=== PATIENT | male | born 1935 | race Caucasian/White ===

== ENCOUNTER 2020-10-19 20:39 | Emergency (ER) | payer MEDICARE ==
[~2020-10-19] VITALS: Ht 185.4 cm; Wt 84.4 kg
[~2020-10-19 20:39] MED LIST: ALTACE10 MG; BP MEDS; METHOTREXATE 22.5 MG; NAPROXEN 500MG500 MG PO
[2020-10-19] MEDS ORDERED: AMANTADINE 100100 MG PO (21:04)
[2020-10-19] MEDS ORDERED: NORVASC5 MG PO (21:05)
[2020-10-19] MEDS ORDERED: CARVEDILOL12.5 MG PO (21:06)
[2020-10-19] MEDS ORDERED: DRIZALMA SPRINK30 MG PO (21:06)
[2020-10-19] MEDS ORDERED: ESCITALOPRA5 MG/5 ML PO (21:07)
[2020-10-19] MEDS ORDERED: LINZESS145 MCG PO (21:07)
[2020-10-19] MEDS ORDERED: FLOMAX0.4 MG PO (21:08)
[2020-10-19] MEDS ORDERED: OMEPRAZOLE 20 M20 M1 PO (21:08)
[2020-10-19 23:45] VITALS: BP 150/76
== END 2020-10-19 23:45 | disposition home or self-care (01) ==
LOC: M.ERS 20:39
DX: S01.111A Laceration without foreign body of right eyelid and periocular area, initial encounter (principal); R51.9 Headache, unspecified; I10 Essential (primary) hypertension; M19.90 Unspecified osteoarthritis, unspecified site; G20 Parkinson's disease; K21.9 Gastro-esophageal reflux disease without esophagitis; I25.2 Old myocardial infarction; F03.90 Unspecified dementia, unspecified severity, without behavioral disturbance, psychotic disturbance, mood disturbance, and anxiety; Z90.5 Acquired absence of kidney; Z79.899 Other long term (current) drug therapy; W01.198A Fall on same level from slipping, tripping and stumbling with subsequent striking against other object, initial encounter; Y93.89 Activity, other specified; Y92.89 Other specified places as the place of occurrence of the external cause; Y99.8 Other external cause status

== ENCOUNTER 2020-10-27 07:19 | Emergency (ER) | payer MEDICARE, MEDICAID ==
[~2020-10-27] VITALS: Ht 182.9 cm; Wt 81.7 kg
[~2020-10-27 07:19] MED LIST changes: +AMANTADINE 100100 MG PO; +CARVEDILOL12.5 MG PO; +DRIZALMA SPRINK30 MG PO; +ESCITALOPRA5 MG/5 ML PO; +FLOMAX0.4 MG PO; +LINZESS145 MCG PO; +NORVASC5 MG PO; +OMEPRAZOLE 20 M20 M1 PO
[2020-10-27 07:58] LABS: ABSOLUTE EOSINOPHILS 0.2 thou/uL (0.0-0.7); ABSOLUTE LYMPHOCYTES 1.5 thou/uL (0.8-5.3); ABSOLUTE MONOCYTES 0.6 thou/uL (0.0-1.2); ABSOLUTE NEUTROPHILS 6.4 thou/uL (1.6-8.1); BASOPHILS 0.5 %; EOSINOPHILS 2.4 %; HEMATOCRIT 40.3 % (42.0-52.0); HEMOGLOBIN 13.7 gm/dL (14.0-18.0); LYMPHOCYTES 16.9 %; MCHC 34.1 g/dL (28.0-37.0); MPV 7.6 fl. (7.2-11.1); NUCLEATED RBCS 0 /100WBC; PLATELET COUNT* 233 thou/uL (150-400); POLYS 73.2 %; RBC 4.29 mil/uL (4.50-6.00); RDW-CV 14.1 % (10.5-14.5); WBC 8.8 thou/uL (4.0-11.0)
[2020-10-27 08:33] LABS: ALBUMIN 3.7 g/dL (3.4-5.0); CALCIUM 8.7 mg/dL (8.5-10.1); CREATININE 1.3 mg/dL (0.6-1.3); POTASSIUM 3.7 mmol/L (3.5-5.1); TOTAL BILIRUBIN 0.4 mg/dL (<0.1-1.0); TOTAL PROTEIN 6.9 g/dL (6.4-8.2)
--- NOTE | 2020-10-27 09:53 | EKG ---
[place] [address] ELECTROCARDIOGRAM REPORT Name: NICOLE MELISSA Room: [facility].#: [id number] Admission: 10/27/20 Attend Phys: Discharge: Date of : 39 Date of Service: 10/27/20739 Report #: [id number] THIS REPORT FOR: //name// [facility] ED Test Date: 2020-10-27 Test Time: 07:40:19 Pat Name: NICOLE MELISSA Department: Room: Gender: Field Observer: [facility] : 1935 Requested By: Loc Jones Order Number: [id number] MD: Jared Naidu Measurements Intervals [place] Rate: 73 P: 75 MO: 244 QRS: 24 QRSD: 93 T: 67 QT: 385 QTc: 425 Interpretive Statements Sinus rhythm Prolonged [place] interval Borderline low voltage, extremity leads No previous ECG available for comparison Electronically Signed On 10-27-2020 9:52:50 CDT by Jared Naidu [email or web address] <ELECTRONICALLY SIGNED> By: Jared Naidu MD, [facility] 10/27/20951 9 9 Jared Naidu MD, FACC /EPI
[2020-10-27 11:27] VITALS: BP 178/85
== END 2020-10-27 11:30 | disposition home or self-care (01) ==
LOC: M.ERS 07:19
PROVIDERS: Family Medicine
DX: R06.00 Dyspnea, unspecified (principal); Z20.822 Contact with and (suspected) exposure to COVID-19; J98.59 Other diseases of mediastinum, not elsewhere classified

== ENCOUNTER 2021-03-15 16:05 | Inpatient (IN) | payer MEDICARE, MEDICAID ==
[~2021-03-15] VITALS: Ht 180.3 cm; Wt 79.8 kg
[2021-03-15 16:12] VITALS: BP 175/72
[2021-03-15 16:28] LABS: ABSOLUTE MONOCYTES 0.5 thou/uL (0.0-1.2); ABSOLUTE NEUTROPHILS 3.5 thou/uL (1.6-8.1); BASOPHILS 0.5 %; EOSINOPHILS 0.1 %; HEMOGLOBIN 13.6 gm/dL (14.0-18.0); LYMPHOCYTES 19.8 %; MCH 31.2 pg (26.0-34.0); MCV 91.7 fL (80.0-100.0); MONOCYTES 10.4 %; MPV 7.8 fl. (7.2-11.1); NUCLEATED RBCS 0 /100WBC; PLATELET COUNT* 132 thou/uL (150-400); POLYS 69.2 %; RBC 4.36 mil/uL (4.50-6.00); RDW-CV 13.8 % (10.5-14.5); WBC 5.1 thou/uL (4.0-11.0)
[2021-03-15 16:40] LABS: CALCIUM 8.1 mg/dL (8.5-10.1); CREATININE 1.6 mg/dL (0.6-1.3)
[2021-03-15 16:41] LABS: POTASSIUM 4.2 mmol/L (3.5-5.1)
[2021-03-15 16:42] LABS: APTT 29.3 Seconds (25.0-31.3); PROTIME 10.5 Seconds (9.20-11.50)
[2021-03-15 16:51] LABS: ALBUMIN 3.1 g/dL (3.4-5.0); TOTAL BILIRUBIN 0.5 mg/dL (<0.1-1.0); TOTAL PROTEIN 6.7 g/dL (6.4-8.2)
[2021-03-15 19:01] VITALS: BP 160/105
--- NOTE | 2021-03-15 21:39 | NUR ---
VERONICA (BROTHER) CALLED RE: PT STATUS [phone]
[2021-03-15 23:02] VITALS: BP 169/70
[2021-03-16 02:30] VITALS: BP 197/93
[2021-03-16 03:05] VITALS: BP 183/93
[2021-03-16 04:16] LABS: HEMATOCRIT 44.7 % (42.0-52.0); HEMOGLOBIN 14.9 gm/dL (14.0-18.0); MCH 30.9 pg (26.0-34.0); MCHC 33.3 g/dL (28.0-37.0); MCV 92.7 fL (80.0-100.0); MPV 7.8 fl. (7.2-11.1); RBC 4.82 mil/uL (4.50-6.00); WBC 4.1 thou/uL (4.0-11.0)
[2021-03-16 04:57] LABS: ALBUMIN 2.9 g/dL (3.4-5.0); CALCIUM 8.1 mg/dL (8.5-10.1); CREATININE 1.3 mg/dL (0.6-1.3); POTASSIUM 3.7 mmol/L (3.5-5.1); TOTAL BILIRUBIN 0.3 mg/dL (<0.1-1.0); TOTAL PROTEIN 6.7 g/dL (6.4-8.2)
--- NOTE | 2021-03-16 08:15 | NUR ---
PT ADMITTED TO ROOM 117 DURING AUTO LOCATOR; VSS, BP ELEVATED, ROOM AIR, SINUS ANGEL ON TELEMETRY, HENSON IN PLACE FROM HOME. HE IS ABLE TO COMMUNICATE HIS NEEDS TO STAFF WITH SOME DIFFICULTY; HE IS WMOP-TS-FARMFPD AND VERY FORGETFUL. HE HAS DENIED THE NEED FOR PAIN MEDICATION UP TO 0700 THIS MORNING. HENSON HAS BEEN PATENT UP TO 0700 TODAY.
--- NOTE | 2021-03-16 08:34 | EKG ---
[place] [address] ELECTROCARDIOGRAM REPORT Name: MELISSANICOLE L Room: [address] ADM IN .R.#: [id number] Admission: 03/15/21 Attend Phys: Kristine Crockett, Discharge: Date of : 39 Date of Service: 03/15/21 1628 Report #: [id number] THIS REPORT FOR: //name// [facility] ED Test Date: 2021-03-15 Test Time: 16:28:03 Pat Name: NICOLE MELISSA Department: Room: [facility] Gender: M Cushion Builder: : 1935 Requested By: Loc Jones Order Number: [id number] MD: Luciano Monteiro Measurements Intervals [place] Rate: 55 P: 68 [place]: 232 QRS: 52 QRSD: 102 T: 81 QT: 499 QTc: 478 Interpretive Statements Sinus rhythm Prolonged [place] interval Borderline prolonged QT interval Compared to ECG 10/27/2020 07:40:19 No significant changes noted Electronically Signed On 03-16-2021 8:34:29 ECOMMERCE ANALYST by Luciano Monteiro [email or web address] <ELECTRONICALLY SIGNED> By: Luciano Monteiro MD, FACC 03/16/21 0834 1628 1628 Luciano Monteiro MD, [facility] /EPI
[2021-03-16 09:38] VITALS: BP 164/82
--- NOTE | 2021-03-16 09:43 | NUR ---
Infection Control: Per [facility] Dept. patient had a positive Covid PCR test on 03/09/21 at [facility].
[2021-03-16 11:36] VITALS: BP 181/84
[2021-03-16 15:43] VITALS: BP 173/71
--- NOTE | 2021-03-16 16:49 | NUR ---
CM ATTEMPTED TO COMPLETE ASSESSMENT BY CALLING PT ROOM 3X, BUT THERE WAS NO ANSWER. CM TO ATTEMPT TO CONDUCT ASSESSMENT AT LATER DATE.
--- NOTE | 2021-03-16 18:27 | NUR ---
PT UP TO CHAIR TODAY AND TAKING IN GOOD PO. OBTAIN ORDER FOR PRN HYDRALAZINE IV. WILL CONTINUE TO ASSESS.
[2021-03-16 20:00] VITALS: BP 147/77
[2021-03-17] VITALS: BP 160/76
[2021-03-17 04:00] VITALS: BP 179/110
[2021-03-17 08:44] VITALS: BP 170/82
[2021-03-17 12:00] VITALS: BP 168/81
[2021-03-17 16:00] VITALS: BP 155/65
--- NOTE | 2021-03-17 16:49 | NUR ---
CM ATTEMPTED TO MAKE CONTACT WITH [facility] RENETTA MORIN [phone] BUT WAS UNABLE TO MAKE CONTACT. CM TO FOLLOWUP TO COMPLETE ASSESSMENT.
--- NOTE | 2021-03-17 18:21 | NUR ---
NOTED 50MLS OUTPUT IN HENSON, BLADDER SCAN IS ZERO. ECOURAGE PO FLUIDS AND SEND MESSAGE TO DR. JOSEPH. WILL CONTINUE TO ASSESS.
[2021-03-17 19:45] VITALS: BP 167/67
[2021-03-18] VITALS: BP 142/54
--- NOTE | 2021-03-18 02:54 | NUR ---
ASSUMED CARE OF PT AT 1900. PT IS CONFUSED BUT PLEASANT. VSS. PERRLA. NO COMPLAINTS OF BED. PT IS ON ROOM AIR. PT HAS A HENSON IN PLACE. PT IS IN SINUS RYTHM ON THE TELEMETRY. PT IS RESTING COMFORTABLY IN BED. RESPIRATIONS ARE EVEN AND NONLABORED. WILL CONTINUE TO MONITOR PT.
[2021-03-18 04:00] VITALS: BP 129/71
[2021-03-18 08:00] VITALS: BP 187/79
[2021-03-18 12:18] VITALS: BP 150/65
[2021-03-18 14:13] LABS: URINE BILIRUBIN NEGATIVE (Negative); URINE BLOOD 1+ (Negative); URINE CLARITY CLEAR; URINE COLOR YELLOW; URINE GLUCOSE-RANDOM NEGATIVE (Negative); URINE KETONES NEGATIVE (Negative); URINE LEUKOCYTES-REFLEX TRACE (Negative); URINE NITRITE-REFLEX POSITIVE (Negative); URINE PROTEIN 2+ (Negative); URINE SPECIFIC GRAVITY 1.015 (1.005-1.030); URINE UROBILINOGEN 0.2 E.U./dl (0.2-1.0)
[2021-03-18 14:21] LABS: BACTERIA-REFLEX 1-9 Few /HPF (None Seen); HYALINE CASTS 4-10 Moderate /LPF (None Seen); SQUAMOUS NONE SEEN /LPF (0-3); URINE WBC-REFLEX 0-5 Rare /HPF (0-5)
[2021-03-18 14:22] LABS: AMORPHOUS URATES Moderate /LPF (None Seen); URINE RBC 3-10 Few /HPF (0-2)
[2021-03-18 16:23] VITALS: BP 165/77
--- NOTE | 2021-03-18 16:58 | NUR ---
CM NOT ABLE TO MAKE CONTACT WITH PT BROTHER/DPOA (RENETTA [phone]) TO COMPLETE ASSESSMENT. CM TO FOLLOWUP. CM SPOKE WITH SENIOR PSYCHIATRIC SECRETARY (MIKEY [phone]) WHO STATED SHE WOULD EMAIL A LIST OF FACILITIES FOR CHALLENGING PLACEMENTS. CM TO FOLLOW. PT PENDING ACCEPTANCE WITH [facility], AND [facility].
[2021-03-18 19:45] VITALS: BP 158/70
[2021-03-19 00:27] VITALS: BP 180/80
[2021-03-19 04:15] VITALS: BP 171/76
--- NOTE | 2021-03-19 04:20 | NUR ---
ASSUMED CARE OF PT AT 1900. PT IS CONFUSED. VSS. PERJIM. NO COMPLAINTS OF PAIN. PT IS ON ROOM AIR. PT HAS A HENSON IN PLACE. PT IS IN SINUS RYTHM ON THE TELEMETRY. PT IS RESTING COMFORTABLY IN BED. RESPIRATIONS ARE EVEN AND NONLABORED. WILL CONTINUE TO MONITOR PT.
[2021-03-19 08:12] VITALS: BP 146/73
--- NOTE | 2021-03-19 11:55 | NUR ---
UPDATED PTS SIGNIFICANT OTHER VIA PHONE, ALL QUESTIONS ANSWERED. UPDATED WAITING ON PLACEMENT AT THIS TIME
[2021-03-19 12:00] VITALS: BP 129/64
[2021-03-19 16:00] VITALS: BP 148/71
--- NOTE | 2021-03-19 19:01 | NUR ---
CM ASSESSMENT ASSESSMENT COMPLETED WITH PT EXWIFE/CAREGIVER NARESH SUGGS ([phone]). PT LIVED IN OWN HOME WITH NARESH. NARESH COMPLETED ALL ADLS. PT USES A WALKER, SHOWER CHAIR. PT HAS NO HX OF ARU, BUT HAD SNF AT [facility] AND HAS CURRENT HH WITH [facility]. NARESH PREVIOUSLY WORKING WITH [facility] IN [facility] ([phone]) FOR PLACEMENT FOR PT. CM CALLED [facility] AND INFORMED THERE ARE NO OPEN BEDS, BUT PT NEXT ON LIST. PT REFERED TO LOCAL SNFS AND CM WAS ADVISED TO CONTACT THE FOLLOWING SNFS ON 03/22/21 TO DETERMINE IF THEY CAN ACCEPT/HAVE BED AVAILABILITY: [facility], [facility], [facility]. CM TO FOLLOW.
[2021-03-19 20:00] VITALS: BP 147/57
[2021-03-20 01:43] VITALS: BP 147/55
--- NOTE | 2021-03-20 05:33 | NUR ---
ASSUMED PT CARE AT APPROX 1930. PT IS AWAEKE AND ORIENTED X4. PT IS TRACING SR ON THE GRINDER AND PLATER. PT IS NOT IN DISTRESS, NO DESATURATIONS NOTED ON ROOM AIR. PT DENIES PAIN/DISCOMFORT. NO ACUTE CAHNGES THIS SHIFT. CALL LIGHT WITHIN REACH. HOURLY ROUNDING DONE FOR PT SAFETY. HIGH FALL PRECAUTIONS IN PLACE.
[2021-03-20 05:50] VITALS: BP 182/87
[2021-03-20 06:18] LABS: URINE BILIRUBIN NEGATIVE (Negative); URINE BLOOD TRACE (Negative); URINE CLARITY CLEAR; URINE COLOR YELLOW; URINE GLUCOSE-RANDOM NEGATIVE (Negative); URINE KETONES NEGATIVE (Negative); URINE LEUKOCYTES NEGATIVE (Negative); URINE NITRITE POSITIVE (Negative); URINE PROTEIN 2+ (Negative); URINE UROBILINOGEN 0.2 E.U./dl (0.2-1.0)
[2021-03-20 06:42] LABS: CASTS None Seen /LPF (None Seen); SQUAMOUS NONE SEEN /LPF (0-3)
[2021-03-20 06:43] LABS: AMORPHOUS URATES Few /LPF (None Seen); BACTERIA 1-9 Few /HPF (None Seen); MUCUS 0-3 Light strn/LPF (None Seen); URINE RBC 0-2 Rare /HPF (0-2); URINE WBC None Seen /HPF (0-5)
[2021-03-20 08:01] VITALS: BP 152/72
[2021-03-20 12:00] VITALS: BP 147/70
[2021-03-20 16:00] VITALS: BP 138/62
--- NOTE | 2021-03-20 18:50 | NUR ---
PT GOT UP TO CHAIR THIS SHIFT, RESTING COMFORTABLY IN RECLINER. PT MORE CONFUSED TODAY THAN YESTERDAY SHIFT, TRIES TO GET OOB ON HIS OWN. BED AND CHAIR ALARMS ARE ON. PTS NARESH UPDATED TWICE THIS SHIFT.
[2021-03-20 20:00] VITALS: BP 163/72
[2021-03-21 00:01] VITALS: BP 177/66
[2021-03-21 04:52] VITALS: BP 157/79
--- NOTE | 2021-03-21 06:00 | NUR ---
No acute changes this shift. Pt remained on room air, no desaturations noted. Pt is tracing SR on the telemetry monitor. High fall precautions in place.
[2021-03-21 08:00] VITALS: BP 158/80
[2021-03-21 12:00] VITALS: BP 134/68
[2021-03-21 16:30] VITALS: BP 148/72
[2021-03-21 18:46] LABS: URINE BILIRUBIN NEGATIVE (Negative); URINE BLOOD 2+ (Negative); URINE CLARITY CLEAR; URINE COLOR YELLOW; URINE GLUCOSE-RANDOM NEGATIVE (Negative); URINE KETONES TRACE (Negative); URINE LEUKOCYTES 1+ (Negative); URINE NITRITE POSITIVE (Negative); URINE PROTEIN 3+ (Negative); URINE UROBILINOGEN 0.2 E.U./dl (0.2-1.0)
[2021-03-21 18:54] LABS: BACTERIA 1-9 Few /HPF (None Seen); CASTS None Seen /LPF (None Seen); CRYSTALS None Seen /LPF (None Seen); MUCUS 0-3 Light strn/LPF (None Seen); SQUAMOUS 4-10 Moderate /LPF (0-3); URINE RBC 3-10 Few /HPF (0-2); URINE WBC 6-15 Few /HPF (0-5)
[2021-03-21 20:00] VITALS: BP 154/62
[2021-03-22] VITALS: BP 156/57
[2021-03-22 04:00] VITALS: BP 165/80
--- NOTE | 2021-03-22 06:47 | NUR ---
No acute changes this shift. Pt remained on room air, no desaturations noted. Pt is tracing Sr on the lunchroom monitor. High fall precautions in place.
[2021-03-22 08:00] VITALS: BP 150/64
[2021-03-22 11:52] VITALS: BP 174/69
--- NOTE | 2021-03-22 13:14 | NUR ---
Nutrition: Pt admitted to COVID unit, COVID positive. Regular diet ordered. Assessed for LOS. Wt: 175#. Albumin 2.9. No meal intake records. Per chart review, awaiting discharge to facility. H/o HTN, advanced dementia. Encourage good po intake. No other nutrition interventions at this time. Consider mild to low risk.
[2021-03-22 15:41] VITALS: BP 126/50
--- NOTE | 2021-03-22 16:56 | NUR ---
CM FOLLOWUP PT PENDING ACCEPTANCE DETERMINATION FROM [facility], [facility], AND [facility] MAY HAVE BED AVAILABLE THIS WEEK IN [facility] UNIT AND WILL ADVISE CM ON 03/23/21. CM TO FOLLOW.
--- NOTE | 2021-03-22 18:58 | NUR ---
PATIENT HAD A QUIET DAY. REMAINS CONFUSED, BUT PLEASANT. SR ON PLUG OVERWRAP MACHINE TENDER. IV SITE PATIENT. PATIENT IS ON ROOM AIR. PATIENT WILL PROBABLY GO TO FACILITY TOMORROW. STABLE.
[2021-03-22 21:00] VITALS: BP 158/74
[2021-03-23 00:30] VITALS: BP 152/94
[2021-03-23 04:00] VITALS: BP 155/74
[2021-03-23 08:00] VITALS: BP 120/66
[2021-03-23 11:55] VITALS: BP 110/60
[2021-03-23] MEDS ORDERED: MIRTAZAPINE15 M2 PO (16:01)
[2021-03-23] MEDS ORDERED: CEFDINIR300 MG PO (16:01)
[2021-03-23 16:03] VITALS: BP 130/66
--- NOTE | 2021-03-23 18:40 | NUR ---
CM FOLLOWUP PT MED CLEAR FOR DC TO SNF AT [facility] [phone]. PT TO BE TRANSPORTED BY [facility] AT 630PM.
--- NOTE | 2021-03-23 20:03 | NUR ---
VERA MANZO GAVE REPORT TO TATUM MANZO. PT DISCHARGED AT [id number] BY [facility].
== END 2021-03-23 20:00 | DRG 177 ==
LOC: M.ERS 16:05 → M.ORTHSURG 16:55 → M.TBA-ER 16:55 → M.ORTHSURG 03-16 02:50
PROVIDERS: Family Medicine; Internal Medicine; ADMIT Internal Medicine; ATTEND Internal Medicine
DX: U07.1 COVID-19 (principal); N17.0 Acute kidney failure with tubular necrosis; E44.0 Moderate protein-calorie malnutrition; M19.90 Unspecified osteoarthritis, unspecified site; K21.9 Gastro-esophageal reflux disease without esophagitis; N40.0 Benign prostatic hyperplasia without lower urinary tract symptoms; F03.90 Unspecified dementia, unspecified severity, without behavioral disturbance, psychotic disturbance, mood disturbance, and anxiety; I12.9 Hypertensive chronic kidney disease with stage 1 through stage 4 chronic kidney disease, or unspecified chronic kidney disease; N40.1 Benign prostatic hyperplasia with lower urinary tract symptoms; R33.8 Other retention of urine; N18.2 Chronic kidney disease, stage 2 (mild); I25.2 Old myocardial infarction; Z82.49 Family history of ischemic heart disease and other diseases of the circulatory system; Z87.891 Personal history of nicotine dependence; Z68.24 Body mass index [BMI] 24.0-24.9, adult

== ENCOUNTER 2021-04-01 08:14 | Inpatient (IN) | payer MEDICARE, MEDICAID ==
[~2021-04-01] VITALS: Ht 177.8 cm; Wt 78.6 kg
--- NOTE | ~2021-04-01 | CON ---
[facility] [address] [place] [address] CONSULTATION Name: NICOLE MELISSA Room: [address] IN [place].#: [id number] Admission: 04/01/21 Attend Phys: Yariel Valenzuela Discharge: Date of : 39 Report #: [id number] THIS REPORT FOR: cc: Conrado Ferrara MD, Dennis R MD Khosla, Parveen K. MD ~ DATE OF CONSULTATION: 04/02/2021 HISTORY OF PRESENT ILLNESS: This is an 85-year-old male patient who is unable to provide any reliable history. It looks to me the patient is pretty significantly demented. The records indicate the same thing. He apparently fell. He does not know why he fell. He had some slurred speech as per records. He does not remember any of those. He was admitted and he says he feels back to his baseline. He is not complaining of any headache now. When I asked him if he hit his head, he says he does not remember. In fact, he does not remember even fall. REVIEW OF SYSTEMS: A 14-point review of system was carried out. It was very difficult. This is because of his memory disturbances. Part of it is from the record. It looks like he has a history of dementia. I asked him if he has any Parkinson's disease, he said no. He has a kidney removed. He has a history of hypertension, arthritis, weakness, history of fall, GERD, BPH, myocardial infarction and apparently has a history of murmur. That is all with the 14-point review of system I can get and I tried. He also had kidney disease and GFR is still low. PAST MEDICAL HISTORY: He says he does not have any prior history of stroke. FAMILY HISTORY: Unavailable. SOCIAL HISTORY: He apparently lives in a usp. We will try to reach some family to get some more history. PHYSICAL EXAMINATION: NEUROLOGIC: His higher functions indicate that he thinks it is February. He thinks Manasa is the president, but he knew what hospital he was in. Cranial nerve examination, I am not sure he can see properly. He sometime counted the fingers, sometime just got it totally wrong. He moved all 4 extremities. I tried to do the positions, he does not understand the instructions. His both plantars are withdrawal. His reflexes are somewhat diminished, looks like he can feel pain. His tone is symmetrical. The rest of the cranial nerve examination is unremarkable. I do not think he has any cerebellar sign, but it is difficult to tell. There is no meningeal sign. There is no carotid bruit. GENERAL: He is reasonably a well-developed individual. NECK: He has no thyroid mass, [place] [address] CONSULTATION Name: NICOLE MELISSA Room: [address] IN [facility]#: [id number] Admission: 04/01/21 Attend Phys: Yariel Valenzuela Discharge: Date of : 39 Report #: [id number] VITAL SIGNS: Blood pressure is 163/91, respirations 17, pulse is 78, temperature is 98.2. CARDIAC: Does appear to have some murmur. No respiratory difficulty. LABORATORY DATA: White count is 7.1. GFR is only 45. DIAGNOSTIC DATA: Carotid Doppler is unremarkable. CT scan of the head and C-spine was done, it does not show any acute changes. There is a question of stroke. He does have periventricular disease. IMPRESSION: 1. Dementia. 2. Ambulation difficulty. 3. Question of stroke on the CT. RECOMMENDATIONS: 1. If possible, would like to do an MRI in this patient. 2. We will try to reach some family. 3. We will do a TSH, vitamin B12 in this patient. 4. We will await the physical therapy and see how he does with the physical therapy. Thank you very much for this referral. By: 1136 1723Ppepito Navarro MD /giuseppe
[~2021-04-01 08:14] MED LIST changes: +CEFDINIR300 MG PO; +MIRTAZAPINE15 M2 PO
[2021-04-01 08:15] VITALS: BP 123/69
[2021-04-01 09:47] LABS: ABSOLUTE EOSINOPHILS 0.1 thou/uL (0.0-0.7); ABSOLUTE MONOCYTES 0.6 thou/uL (0.0-1.2); ABSOLUTE NEUTROPHILS 5.3 thou/uL (1.6-8.1); BASOPHILS 0.6 %; EOSINOPHILS 1.9 %; HEMOGLOBIN 14.3 gm/dL (14.0-18.0); LYMPHOCYTES 14.7 %; MCH 31.5 pg (26.0-34.0); MCV 92.5 fL (80.0-100.0); MONOCYTES 8.4 %; MPV 6.5 fl. (7.2-11.1); NUCLEATED RBCS 0 /100WBC; PLATELET COUNT* 324 thou/uL (150-400); POLYS 74.4 %; RBC 4.54 mil/uL (4.50-6.00); RDW-CV 13.8 % (10.5-14.5); WBC 7.1 thou/uL (4.0-11.0)
[2021-04-01 09:55] LABS: CALCIUM 9.3 mg/dL (8.5-10.1); CREATININE 1.7 mg/dL (0.6-1.3); POTASSIUM 4.2 mmol/L (3.5-5.1)
[2021-04-01 10:00] LABS: ALBUMIN 3.4 g/dL (3.4-5.0); TOTAL BILIRUBIN 0.7 mg/dL (<0.1-1.0); TOTAL PROTEIN 7.8 g/dL (6.4-8.2)
[2021-04-01 11:13] VITALS: BP 148/81
--- NOTE | 2021-04-01 13:03 | EKG ---
[place] [address] ELECTROCARDIOGRAM REPORT Name: MELISSANICOLE Room: [address] ADM IN ..#: [id number] Admission: 04/01/21 Attend Phys: Asutin Mcmanus Discharge: Date of : 39 Date of Service: 04/01/21 0933 Report #: [id number] THIS REPORT FOR: //name// [facility] ED Test Date: 2021-04-01 Test Time: 09:33:01 Pat Name: NICOLE MELISSA Department: Room: [facility] Gender: M Mirror Framer: : 1935 Requested By: Marino Kramer Order Number: [id number] MD: Jared Naidu Measurements Intervals [place] Rate: 64 P: 27 [place]: 219 QRS: 44 QRSD: 100 T: 79 QT: 438 QTc: 452 Interpretive Statements Sinus rhythm Borderline prolonged [place] interval Probable left atrial enlargement Baseline wander in lead(s) V1,V2 Compared to ECG 03/15/2021 16:28:03 rate has increased Electronically Signed On 04-01-2021 13:02:56 SURETY BOND AGENT by Jared Naidu [email or web address] <ELECTRONICALLY SIGNED> By: Jared Naidu MD, [facility] 04/01/21 1302 0933 0933 Jared Naidu MD, FAC /EPI
[2021-04-01 16:00] VITALS: BP 175/89
[2021-04-01 20:00] VITALS: BP 185/95
[2021-04-01 20:31] LABS: URINE BILIRUBIN NEGATIVE (Negative); URINE BLOOD 1+ (Negative); URINE CLARITY CLEAR; URINE COLOR YELLOW; URINE GLUCOSE-RANDOM NEGATIVE (Negative); URINE KETONES NEGATIVE (Negative); URINE LEUKOCYTES-REFLEX NEGATIVE (Negative); URINE NITRITE-REFLEX NEGATIVE (Negative); URINE PROTEIN 2+ (Negative); URINE UROBILINOGEN 0.2 E.U./dl (0.2-1.0)
[2021-04-01 20:40] LABS: HYALINE CASTS 0-3 Few /LPF (None Seen); MUCUS None Seen strn/LPF (None Seen); SQUAMOUS 0-3 Few /LPF (0-3)
[2021-04-01 20:41] LABS: BACTERIA-REFLEX 1-9 Few /HPF (None Seen); CRYSTALS None Seen /LPF (None Seen); URINE RBC 0-2 Rare /HPF (0-2); URINE WBC-REFLEX 6-15 Few /HPF (0-5)
[2021-04-02] VITALS: BP 156/97
[2021-04-02 04:00] VITALS: BP 174/84
[2021-04-02 05:39] LABS: ANION GAP 8 mmol/L (7-16); CHLORIDE 103 mmol/L (98-107); CHOLESTEROL 180 mg/dL (<200); POTASSIUM 3.8 mmol/L (3.5-5.1); SODIUM 139 mmol/L (136-145); VLDL 21 mg/dL (<40)
[2021-04-02 05:42] LABS: ALKALINE PHOSPHATASE 127 U/L (46-116); BUN 20 mg/dL (7-18); CALCIUM 8.8 mg/dL (8.5-10.1); CO2 28 mmol/L (21-32); CREATININE 1.6 mg/dL (0.6-1.3); GLUCOSE 79 mg/dL (70-99); HDL CHOLESTEROL 44 mg/dL (>40); LDL CHOLESTEROL 115 mg/dL (<100); SGOT 43 U/L (15-37); SGPT 38 U/L (30-65); TC:HDL 4.1 Ratio (Not establshd); TOTAL BILIRUBIN 0.6 mg/dL (<0.1-1.0); TOTAL PROTEIN 6.7 g/dL (6.4-8.2); TRIGLYCERIDE 105 mg/dL (<150)
[2021-04-02 05:47] LABS: SERUM ASSESSMENT CLEAR
[2021-04-02 06:03] LABS: CALCIUM 8.5 mg/dL (8.5-10.1); CREATININE 1.5 mg/dL (0.6-1.3); POTASSIUM 4.2 mmol/L (3.5-5.1)
[2021-04-02 08:00] VITALS: BP 150/67
[2021-04-02 12:00] VITALS: BP 163/91
--- NOTE | 2021-04-02 13:49 | 2DMMODE ---
[place] [address] 2 D/M-MODE ECHOCARDIOGRAM Name: NICOLE MELISSA Room: [address] IN [place]#: [id number] Admission: 04/01/21 Attend Phys: Austin Mcmanus Discharge: Date of : 39 Date of Service: 04/02/21 1349 Report #: [id number] THIS REPORT FOR: cc: Conrado Ferrara MD, Dennis R MD Blick, David R. MD [facility] ~ ADDENDUM APPROVED REPORT Study performed: 04/02/2021 09:56:19 EXAM: Comprehensive 2D, Doppler, and color-flow Echocardiogram Patient Location: In-Patient Room #: Formerly named [facility] Status: routine BSA: 1.96 HR: 62 bpm BP: 174/84 mmHg Rhythm: NSR Other Information Study Quality: Good Indications CVA/TIA Echo Enhancing Agent Indication: Rule out Shunt Agent(s) / Amount(s) Used: Agitated Saline 10 cc 2D Dimensions IVSd: 11.43 (7-11mm) LVOT Diam: 20.18 (18-24mm) LVDd: 42.77 mm PWd: 10.64 (7-11mm) Aortic Root: 36.87 mm Volumes Left Atrial Volume (Systole) LA ESV Index: 21.30 mL/m2 Aortic Valve AoV Peak Martin.: 1.34 m/s AO Peak Gr.: 7.16 mmHg LVOT Max P.12 mmHg AO Mean Gr.: 3.64 mmHg LVOT Mean P.47 mmHg LVOT Max V: 0.88 m/[place] [address] 2 D/M-MODE ECHOCARDIOGRAM Name: NICOLE MELISSA Room: [address]#: [id number] Admission: 04/01/21 Attend Phys: Austin Mcmanus Discharge: Date of : 39 Date of Service: 04/02/21 1349 Report #: [id number] AO V2 VTI: 22.83 cm LVOT Mean V: 0.56 m/s MARY (VTI): 2.60 cm2 LVOT V1 VTI: 18.55 cm Mitral Valve E/A Ratio: 0.51 MV Decel. Time: 479.26 ms MV E Max Martin.: 0.53 m/s MV PHT: 138.98 ms MVA (PHT): 1.58 cm2 TDI E/Lateral E': 6.63 E/Medial E': 7.57 Medial E' Martin.: 0.07 m/s Lateral E' Martin.: 0.08 m/s Left Ventricle The left ventricle is normal size. There is normal LV segmental wall motion. There is normal left ventricular wall thickness. Left ventricular systolic function is normal. The left ventricular ejection fraction is within the normal range. LVEF is 60-65%. Grade I - abnormal relaxation pattern. Right Ventricle The right ventricle is normal size. The right ventricular systolic function is normal. Pacemaker lead is present in the right ventricle. Atria The left atrium size is normal. PFO is noted. The right atrium size is normal. Aortic Valve Mild aortic valve sclerosis. No aortic regurgitation is present. There is no aortic valvular stenosis. Mitral Valve There is mitral annular calcification. The mitral valve is normal in structure. There is trace mitral valve regurgitation noted. No evidence of mitral valve stenosis. Tricuspid Valve The tricuspid valve is normal in structure. Unable to assess PA pressure. Trace tricuspid regurgitation. Pulmonic Valve The pulmonary valve is normal in structure. There is no pulmonic [place] [address] 2 D/M-MODE ECHOCARDIOGRAM Name: MELISSANICOLE King Ariela Room: [address]#: [id number] Admission: 04/01/21 Attend Phys: Austin Mcmanus Discharge: Date of : 39 Date of Service: 04/02/21 1349 Report #: [id number] Great Vessels The aortic root is normal in size. IVC is normal in size and collapses >50% with inspiration. Pericardium There is no pericardial effusion. <Conclusion> LVEF is 60-65%. Mild aortic valve sclerosis. PFO is noted. <ELECTRONICALLY SIGNED> By: Jared Naidu MD, [facility] 04/02/21 1349 1349 1349 Jared Naidu MD, FACC /INF
[2021-04-02 16:02] VITALS: BP 147/73
[2021-04-02 20:00] VITALS: BP 170/82
[2021-04-03] VITALS (7 sets, daily range): BP systolic 38–177; BP diastolic 74–82
[2021-04-03 02:06] LABS: GLYCOHEMOGLOBIN (HGB A1C) 5.7 % (4.8-5.6)
[2021-04-04] VITALS: BP 196/93
[2021-04-04 04:00] VITALS: BP 169/82
[2021-04-04 08:00] VITALS: BP 173/72
--- NOTE | 2021-04-04 08:04 | CON ---
[address] [address] CONSULTATION Name: NICOLE MELISSA Room: [address] IN [place].#: [id number] Admission: 04/01/21 Attend Phys: Yariel Valenzuela Discharge: Date of : 39 Report #: [id number] THIS REPORT FOR: cc: Conrado Ferrara MD, Dennis R MD BiggsMercedes MD [facility] ~ DATE OF CONSULTATION: 04/03/2021 CARDIOLOGY CONSULTATION HISTORY OF PRESENT ILLNESS: I was asked by Dr. Tate to see this 85-year-old white male in Cardiology consultation for evaluation and treatment of a CVA in the context of recently discovered PFO. This man cannot give a history, he is demented, he lives in a prison. He thinks he is here because he recently had surgery on his right shoulder that is not the case. He was sent in from the prison because of a fall. He apparently has had multiple falls. He was found to have a subacute stroke. It involved the right occipital lobe. An MRI confirmed the finding of a subacute stroke. An echocardiogram done 2 days ago revealed a PFO. The size of the PFO was not mentioned on the echo report. PAST MEDICAL HISTORY: Remarkable for dementia and Parkinson's. He resides in a prison. He is alleged to have 2 myocardial infarctions. He does have frequent falls as a previous diagnosis and he has essential hypertension. SOCIAL HISTORY: He does not smoke, drink or use illegal drugs. FAMILY HISTORY: Unobtainable. REVIEW OF SYSTEMS: Negative. He says no to everything I asked him. HOME MEDICATIONS: Include amantadine 100 mg b.i.d., amlodipine 5 mg daily, carvedilol 12.5 mg b.i.d., duloxetine 30 mg daily, ____ p.o. daily, Linzess 145 mcg daily, omeprazole 20 mg daily, tamsulosin 0.4 mg daily. He is also on mirtazapine 15 mg at bedtime and Omnicef 300 mg b.i.d. ALLERGIES: He has no known allergies. PHYSICAL EXAMINATION: GENERAL: He presents as a well-developed, well-nourished elderly white male in no acute distress. VITAL SIGNS: Pulse was 65 and regular, respirations 20 and regular, blood pressure is 138/78, temperature is 36.5, and his O2 sat was 97%. NECK: There was no jugular venous distention or hepatojugular reflux. HEENT: Head was atraumatic. LUNGS: Clear [place] [address] CONSULTATION Name: NICOLE MELISSA Room: [address]#: [id number] Admission: 04/01/21 Attend Phys: Yariel Valenzuela Discharge: Date of : 39 Report #: [id number] HEART: Revealed normal first and second heart sound. There is soft S4. There is no S3. There are no murmurs, rubs, thrills, heaves or gallops. PMI is nondisplaced. ABDOMEN: Soft, flat, nontender, no palpable masses, no organomegaly. EXTREMITIES: Reveal no cyanosis, clubbing or edema. NEUROLOGIC: The patient did not mentate normally. He was clearly quite demented. He did move all extremities normally. He could talk normally. LABORATORY DATA: His EKG reveals normal sinus rhythm, heart rate 64. There is first-degree AV block with left atrial enlargement. His chest x-ray showed no acute cardiopulmonary process. IMPRESSION: 1. Cerebrovascular accident involving the right posterior cerebral artery distribution involving the right occipital and posterior temporal lobe. 2. Patent foramen ovale. 3. Dementia. 4. Parkinson's disease. 5. Status post myocardial infarction x 2. 6. Frequent falls. 7. Essential hypertension. RECOMMENDATIONS: I would only treat this man with aspirin 162 mg b.i.d. He is not a candidate for full anticoagulation given his fall history. Thank you very much for asking me to see the patient. If you have any questions, please feel free to contact me. <ELECTRONICALLY SIGNED> By: Mercedes Collins MD, FACC 04/04/21 0804 1142 [id number]. Spencer Collins MD, FACC /nt
[2021-04-04] MEDS ORDERED: CHILDREN'S ASPI81 M1 PO (09:29)
[2021-04-04] MEDS ORDERED: CLOPIDOGREL75 MG PO (09:29)
[2021-04-04] MEDS ORDERED: LIPITOR40 MG PO (09:29)
[2021-04-04 09:53] VITALS: BP 173/72
== END 2021-04-04 13:13 | DRG 65 ==
LOC: M.ERS 08:14 → M.TBA-ER 09:33 → M.2W 09:33
PROVIDERS: Emergency Medicine Emergency Medical Services; Internal Medicine; ADMIT Internal Medicine; ATTEND Internal Medicine
DX: I63.9 Cerebral infarction, unspecified (principal); N17.9 Acute kidney failure, unspecified; W18.39XA Other fall on same level, initial encounter; Y93.89 Activity, other specified; Y92.89 Other specified places as the place of occurrence of the external cause; Y99.8 Other external cause status; F03.90 Unspecified dementia, unspecified severity, without behavioral disturbance, psychotic disturbance, mood disturbance, and anxiety; I12.9 Hypertensive chronic kidney disease with stage 1 through stage 4 chronic kidney disease, or unspecified chronic kidney disease; N18.9 Chronic kidney disease, unspecified; I25.2 Old myocardial infarction; N40.0 Benign prostatic hyperplasia without lower urinary tract symptoms; K21.9 Gastro-esophageal reflux disease without esophagitis; M19.049 Primary osteoarthritis, unspecified hand; Z79.899 Other long term (current) drug therapy; J01.90 Acute sinusitis, unspecified; G20 Parkinson's disease; Z87.891 Personal history of nicotine dependence; Z20.822 Contact with and (suspected) exposure to COVID-19

== ENCOUNTER 2021-04-07 08:39 | Emergency (ER) | payer MEDICARE, MEDICAID ==
[~2021-04-07] VITALS: Ht 185.4 cm; Wt 78.8 kg
[~2021-04-07 08:39] MED LIST changes: +CHILDREN'S ASPI81 M1 PO; +CLOPIDOGREL75 MG PO; +LIPITOR40 MG PO
[2021-04-07 13:03] VITALS: BP 148/86
== END 2021-04-07 15:44 | disposition home or self-care (01) ==
LOC: M.ERS 08:39
DX: M54.50 Low back pain, unspecified (principal); I10 Essential (primary) hypertension; M19.90 Unspecified osteoarthritis, unspecified site; K21.9 Gastro-esophageal reflux disease without esophagitis; I25.2 Old myocardial infarction; F03.90 Unspecified dementia, unspecified severity, without behavioral disturbance, psychotic disturbance, mood disturbance, and anxiety; G20 Parkinson's disease; Z90.5 Acquired absence of kidney; Z79.899 Other long term (current) drug therapy; Z79.82 Long term (current) use of aspirin; W01.0XXA Fall on same level from slipping, tripping and stumbling without subsequent striking against object, initial encounter; Y93.89 Activity, other specified; Y92.89 Other specified places as the place of occurrence of the external cause; Y99.8 Other external cause status